=== PATIENT | male | born 1980 | race Caucasian/White ===

== ENCOUNTER → 2022-05-28 10:24 | Outpatient (BNVA) | payer MEDICARE, MEDICAID, SELFPAY | PROVIDERS: PCP Physical Medicine & Rehabilitation; Visit Provider Internal Medicine | DX: M47.816 Spondylosis without myelopathy or radiculopathy, lumbar region (principal); M47.814 Spondylosis without myelopathy or radiculopathy, thoracic region; M54.14 Radiculopathy, thoracic region | CPT/HCPCS: 99202 ==

== ENCOUNTER 2022-06-27 06:00 | Outpatient (REF) | payer MEDICARE, MEDICAID, SELFPAY | END 2022-06-27 06:01 | disposition home or self-care (01) | LOC: CF 06:00 | PROVIDERS: Visit Provider Internal Medicine | DX: Z13.89 Encounter for screening for other disorder (principal) ==